=== PATIENT | male | born 1945 | race Caucasian/White ===

== ENCOUNTER 2020-03-30 08:37 | Outpatient (CLI) | payer MEDICARE, SELFPAY ==
[2020-04-03 02:23] LABS: SARS-CoV-2 RNA Undetected (Undetected)
== END 2020-03-30 08:57 ==
PROVIDERS: PCP Legal Medicine; Visit Provider Registered Nurse
DX: Z03.818 Encounter for observation for suspected exposure to other biological agents ruled out (principal)
CPT/HCPCS: U0003